=== PATIENT | female | born 1960 | race Caucasian/White ===

== ENCOUNTER → 2019-07-06 | Outpatient (REF) | LOC: M LAB LCGH 13:33 | PROVIDERS: ATTEND Obstetrics & Gynecology | DX: N95.0 Postmenopausal bleeding (principal) ==

== ENCOUNTER → 2019-09-27 | Outpatient (REF) | payer OTHER | LOC: M LAB LCGH 12:19 | PROVIDERS: ATTEND Obstetrics & Gynecology | DX: N71.1 Chronic inflammatory disease of uterus (principal); N95.0 Postmenopausal bleeding ==